=== PATIENT | female | born 1955 | race Caucasian/White ===

== ENCOUNTER 2016-10-24 16:52 | Inpatient (IN) | payer OTHER ==
[~2016-10-24] VITALS: Ht 167.6 cm; Wt 96.2 kg
[2016-10-24 16:55] VITALS: BP 236/99; PULSE 116; RESP 16; TEMP 98.9; O2SAT 98
[2016-10-24] MEDS ORDERED: VENL75TA PO (17:08)
[2016-10-24] MEDS ORDERED: SODIUM CHLOR 0.9% 1000 ML INJ 1,000 ML IV SCH (17:18)
[2016-10-24] MEDS ORDERED: SODIUM CHLORIDE 0.9% FLUSH 10 ML FLUSH IV FLUSH PRN ×2 (17:30→20:30)
[2016-10-24 17:35] LABS: AUTOMATED NEUTROPHIL # 10.6 TH/MM3 (1.8-7.7); BASOPHIL # 0.1 TH/MM3 (0-0.2); BASOPHIL % 0.4 % (0.0-2.0); EOSINOPHIL # 0.2 TH/MM3 (0-0.4); EOSINOPHIL % 1.5 % (0.0-4.0); HEMATOCRIT 42.3 % (35.0-46.0); HEMO FLAGS DIFF FINAL; LYMPH % 14.8 % (9.0-44.0); LYMPHOCYTE # 2.1 TH/MM3 (1.0-4.8); MEAN CELL VOLUME 83.3 FL (80.0-100.0); MEAN CORPUSCULAR HEMOGLOBIN 27.7 PG (27.0-34.0); MEAN CORPUSCULAR HGB CONC 33.2 % (32.0-36.0); MONO % 6.7 % (0.0-8.0); NEUT % 76.6 % (16.0-70.0); PLATELET COUNT 223 TH/MM3 (150-450); RED BLOOD COUNT 5.08 MIL/MM3 (4.00-5.30); RED CELL DISTRIBUTION WIDTH 12.6 % (11.6-17.2); WHITE BLOOD COUNT 13.9 TH/MM3 (4.0-11.0)
[2016-10-24 17:43] LABS: CHLORIDE 105 MEQ/L (98-107); POTASSIUM 3.2 MEQ/L (3.5-5.1); SODIUM (NA) 140 MEQ/L (136-145)
[2016-10-24 17:48] LABS: ANION GAP 8 MEQ/L (5-15); BICARBONATE 26.6 MEQ/L (21.0-32.0)
[2016-10-24 17:49] LABS: BLOOD UREA NITROGEN 11 MG/DL (7-18)
[2016-10-24 17:51] LABS: ALT (GPT) 30 U/L (10-53); AST (GOT) 23 U/L (15-37); GLOMERULAR FILTRATION RATE 84 ML/MIN (>89)
[2016-10-24 17:53] LABS: TOTAL BILIRUBIN ADULT 0.7 MG/DL (0.2-1.0)
[2016-10-24 17:54] LABS: ALKALINE PHOSPHATASE 79 U/L (45-117)
--- NOTE | 2016-10-24 17:55 | PD ---
HPI Chief Complaint: Flank/Kidney Pain Time Seen by Provider: 17:01 Travel History International Travel<30 days: No Contact w/Intl Traveler<30days: No Traveled to known affect area: No History of Present Illness HPI 51-year-old female complains of right upper quadrant pain radiating to the back since yesterday. Yesterday she felt pain in the region of the right back consistent with what she thought might have been a dislocated rib. She saw a chiropractor who is able to adjust her and reduce the rib. She felt better however overnight increasing right upper quadrant pain did not improve with Tylenol morning and by the afternoon today she decided to come to the ER. Here she notes 2 prior episodes of symptomatic cholelithiasis. She's had no fever or vomiting however has had decreased appetite. PFSH Past Medical History Medical History: Denies Significant Hx Tetanus Vaccination: > 5 Years Influenza Vaccination: No ?: Not Social History Alcohol Use: No Tobacco Use: No Substance Use: No Allergies-Medications (Allergen,Severity, Reaction): Uncoded Allergies: NARCOTICS (Adverse Reaction, Unknown, 10/24/16) Reported Meds & Prescriptions Reported Meds & Active Scripts Active Reported Effexor (Venlafaxine HCl) 75 Mg Tab 75 Mg PO DAILY Review of Systems Except as stated in HPI: all other systems reviewed are Neg General / Constitutional: No: Fever Gastrointestinal: Positive: Loss of Appetite Physical Exam Narrative GENERAL: 61-year-old female pleasant well-nourished well-developed SKIN: Focused skin assessment warm/dry. HEAD: Atraumatic. Normocephalic. EYES: Pupils equal and round. No scleral icterus. No injection or drainage. ENT: No nasal bleeding or discharge. Mucous membranes pink and moist. NECK: Trachea midline. No JVD. CARDIOVASCULAR: Regular rate and rhythm. No murmur appreciated. RESPIRATORY: No accessory muscle use. Clear to auscultation. Breath sounds equal bilaterally. GASTROINTESTINAL: Soft. Minimal tenderness palpation of the right upper quadrant. No flank tenderness. MUSCULOSKELETAL: No obvious deformities. No clubbing. No cyanosis. No edema. NEUROLOGICAL: Awake and alert. No obvious cranial nerve deficits. Motor grossly within normal limits. Normal speech. PSYCHIATRIC: Appropriate mood and affect; insight and judgment normal. Data Data Last Documented VS Vital Signs Date Time Temp Pulse Resp B/P Pulse Ox O2 Delivery O2 Flow Rate FiO2 7/31/17 16:55 98.9 116 16 236/99 98 VS REVIEWED Orders Complete Blood Count With Diff (10/24/16 17:18) Comprehensive Metabolic Panel (10/24/16 17:18) Lipase (10/24/16 17:18) Us Abdomen Gallbladder (10/24/16 ) Iv Access Insert/Monitor (10/24/16 17:18) Ecg Monitoring (10/24/16 17:18) Oximetry (10/24/16 17:18) Sodium Chlor 0.9% 1000 Ml Inj (Ns 1000 M (10/24/16 17:18) Sodium Chloride 0.9% Flush (Ns Flush) (10/24/16 17:30) Potassium Chloride (Kcl) (10/24/16 18:15) Piperacil-Tazo 3.375 Gm Premix (Zosyn 3. (10/24/16 19:30) Admit Order (Ed Use Only) (10/24/16 ) Labs Laboratory Tests Test 10/24/16 16:25 White Blood Count 13.9 TH/MM3 Red Blood Count 5.08 MIL/MM3 Hemoglobin 14.1 GM/DL Hematocrit 42.3 % Mean Corpuscular Volume 83.3 FL Mean Corpuscular Hemoglobin 27.7 PG Mean Corpuscular Hemoglobin 33.2 % Concent Red Cell Distribution Width 12.6 % Platelet Count 223 TH/MM3 Mean Platelet Volume 8.4 FL Neutrophils (%) (Auto) 76.6 % Lymphocytes (%) (Auto) 14.8 % Monocytes (%) (Auto) 6.7 % Eosinophils (%) (Auto) 1.5 % Basophils (%) (Auto) 0.4 % Neutrophils # (Auto) 10.6 TH/MM3 Lymphocytes # (Auto) 2.1 TH/MM3 Monocytes # (Auto) 0.9 TH/MM3 Eosinophils # (Auto) 0.2 TH/MM3 Basophils # (Auto) 0.1 TH/MM3 CBC Comment DIFF FINAL Differential Comment Sodium Level 140 MEQ/L Potassium Level 3.2 MEQ/L Chloride Level 105 MEQ/L Carbon Dioxide Level 26.6 MEQ/L Anion Gap 8 MEQ/L Blood Urea Nitrogen 11 MG/DL Creatinine 0.71 MG/DL Estimat Glomerular Filtration 84 ML/MIN Rate Random Glucose 114 MG/DL Calcium Level 9.1 MG/DL Total Bilirubin 0.7 MG/DL Aspartate Amino Transf 23 U/L (AST/SGOT) Alanine Aminotransferase 30 U/L (ALT/SGPT) Alkaline Phosphatase 79 U/L Total Protein 7.8 GM/DL Albumin 3.5 GM/DL Lipase 115 U/L MDM Medical Decision Making Medical Screen Exam Complete: Yes Emergency Medical Condition: Yes Medical Record Reviewed: Yes Differential Diagnosis Gastritis, pancreatitis, appendicitis, acute cholecystitis, ascending cholangitis, AAA, perforated viscous, mesenteric ischemia, hepatitis, cystitis, hydronephrosis/hydroureter/nephroureter calculus, mesenteric adenitis, biliary colic Narrative Course CBC & BMP Diagram 10/24/16 16:25 LFTS NORMAL LIPASE NORMAL Oncoming provider to follow-up ultrasound of the right upper quadrant and disposition depending on results. Scripts Lisinopril-Hctz 10-12.5 Mg Tab1 Tab PO DAILY #30 TAB Ref 0 Prov:Axel Dewitt MD 10/26/16 Umer Galeana MD Oct 24, 2016 17:55
[2016-10-24] MEDS ORDERED: POTASSIUM CHLORIDE 20 MEQ CONTROLLED RELEASE TAB PO ONE (18:15)
--- NOTE | 2016-10-24 19:06 | RADRPT ---
EXAM DATE/TIME: 10/24/2016 18:34 [place] COMPARISON: No previous studies available for comparison. INDICATIONS : Right upper quadrant and back pain, nausea and vomiting. MEDICAL HISTORY : Right upper quadrant and back pain, nausea and vomiting. SURGICAL HISTORY : Ankle surgery. ENCOUNTER: Initial ACUITY: 2 days PAIN SCORE: 4/10 LOCATION: Right upper quadrant MEASUREMENTS: LIVER: 18.5 cm length COMMON DUCT: 4 mm RIGHT KIDNEY: 11.4 x 5.8 x 6.7 cm FINDINGS: LIVER: Normal echotexture without focal lesion or ductal dilatation. Hepatopedal flow single portal vein. COMMON DUCT: No intraluminal mass or stone visualized. GALLBLADDER: Abnormal appearance the gallbladder with multiple small shadowing stones. Gallbladder wall measures 5 mm in thickness and on several images, there is a thin hypoechoic rim anteriorly suggesting pericho lecystic fluid. PANCREAS: Not well seen RIGHT KIDNEY: No evidence of hydronephrosis, stone, or mass. CONCLUSION: 1. Abnormal appearance the gallbladder with multiple shadowing stones, gallbladder wall thickening an d mild pericholecystic fluid. Findings suggest acute cholecystitis.2. Hepatomegaly without focal les ion. Paolo Murray MD on October 24, 2016 at 19:03 Board Certified Radiologist. This report was verified electronically.
[2016-10-24] MEDS ORDERED: PIPERACIL-TAZO 3.375 GM PREMIX 50 ML IV ONE (19:30)
--- NOTE | 2016-10-24 19:30 | PD ---
Physical Exam Narrative Patient signed out to me by Dr. Galeana. Please see his documentation for complete details. Briefly, patient is a 61 year old female who comes in complaining of right sided pain that started last night. Labs show an elevated WBC count to 13.9. LFTs and bilirubin are within normal limits. Data Data Last Documented VS Vital Signs Date Time Temp Pulse Resp B/P Pulse Ox O2 Delivery O2 Flow Rate FiO2 10/24/16 16:55 98.9 116 16 236/99 98 Orders Complete Blood Count With Diff (10/24/16 17:18) Comprehensive Metabolic Panel (10/24/16 17:18) Lipase (10/24/16 17:18) Us Abdomen Gallbladder (10/24/16 ) Iv Access Insert/Monitor (10/24/16 17:18) Ecg Monitoring (10/24/16 17:18) Oximetry (10/24/16 17:18) Sodium Chlor 0.9% 1000 Ml Inj (Ns 1000 M (10/24/16 17:18) Sodium Chloride 0.9% Flush (Ns Flush) (10/24/16 17:30) Potassium Chloride (Kcl) (10/24/16 18:15) Piperacil-Tazo 3.375 Gm Premix (Zosyn 3. (10/24/16 19:30) Labs Laboratory Tests Test 10/24/16 16:25 White Blood Count 13.9 TH/MM3 Red Blood Count 5.08 MIL/MM3 Hemoglobin 14.1 GM/DL Hematocrit 42.3 % Mean Corpuscular Volume 83.3 FL Mean Corpuscular Hemoglobin 27.7 PG Mean Corpuscular Hemoglobin 33.2 % Concent Red Cell Distribution Width 12.6 % Platelet Count 223 TH/MM3 Mean Platelet Volume 8.4 FL Neutrophils (%) (Auto) 76.6 % Lymphocytes (%) (Auto) 14.8 % Monocytes (%) (Auto) 6.7 % Eosinophils (%) (Auto) 1.5 % Basophils (%) (Auto) 0.4 % Neutrophils # (Auto) 10.6 TH/MM3 Lymphocytes # (Auto) 2.1 TH/MM3 Monocytes # (Auto) 0.9 TH/MM3 Eosinophils # (Auto) 0.2 TH/MM3 Basophils # (Auto) 0.1 TH/MM3 CBC Comment DIFF FINAL Differential Comment Sodium Level 140 MEQ/L Potassium Level 3.2 MEQ/L Chloride Level 105 MEQ/L Carbon Dioxide Level 26.6 MEQ/L Anion Gap 8 MEQ/L Blood Urea Nitrogen 11 MG/DL Creatinine 0.71 MG/DL Estimat Glomerular Filtration 84 ML/MIN Rate Random Glucose 114 MG/DL Calcium Level 9.1 MG/DL Total Bilirubin 0.7 MG/DL Aspartate Amino Transf 23 U/L (AST/SGOT) Alanine Aminotransferase 30 U/L (ALT/SGPT) Alkaline Phosphatase 79 U/L Total Protein 7.8 GM/DL Albumin 3.5 GM/DL Lipase 115 U/L MDM Supervised Visit with MONICA: No Narrative Course US shows acute cholecystitis. Surgery, Dr. Villa, was consulted who will come see the patient and likely take her to the OR tomorrow. She is given Zosyn. She does not want any more pain medicine at this time. She will be admitted to medicine for further management. Diagnosis Primary Impression: Cholecystitis Admitting Information Admitting Physician Requests: Admit Condition: Stable Poornima Savage MD Oct 24, 2016 19:30
[2016-10-24 20:19] VITALS: BP 181/102; PULSE 102; RESP 18; O2SAT 98
[2016-10-24 20:20] VITALS: RESP 18; O2SAT 98
[2016-10-24] MEDS ORDERED: ACETAMINOPHEN 325 MG TAB PO PRN (20:30)
[2016-10-24] MEDS ORDERED: diphenhydrAMINE HCL 25 MG CAP PO PRN (20:30)
[2016-10-24] MEDS ORDERED: KETOROLAC TROMETHAMINE 30 MG/ML (IVP) VIAL IVP PRN (20:30)
[2016-10-24] MEDS ORDERED: ONDANSETRON HCL 4 MG/2 ML VIAL IV PRN (20:30)
[2016-10-24 20:45] VITALS: BP 198/95; PULSE 98; RESP 20; TEMP 98.4; O2SAT 97
[2016-10-24] MEDS: LEVOFLOXACIN 500 MG PREMIX INJ 100 ML IV SCH (21:00)
[2016-10-24] MEDS: SODIUM CHLORIDE 0.9% FLUSH 10 ML FLUSH IV FLUSH SCH (21:00)
[2016-10-24] MEDS: D5-1/2 NS + KCL 20 MEQ INJ 1,000 ML IV SCH (21:31)
[2016-10-24] MEDS: metroNIDAZOLE 500 MG INJ 100 ML IV SCH (22:00)
[2016-10-25] VITALS: BP 156/85; PULSE 88; RESP 18; TEMP 98.8; O2SAT 98
[2016-10-25] MEDS: VENLAFAXINE HCL XR 75 MG CAP PO SCH ×2 (01:07→21:05)
[2016-10-25] MEDS: metroNIDAZOLE 500 MG INJ 100 ML IV SCH ×3 (05:56→21:07)
[2016-10-25 06:32] LABS: AUTOMATED NEUTROPHIL # 9.3 TH/MM3 (1.8-7.7); BASOPHIL % 0.4 % (0.0-2.0); EOSINOPHIL # 0.2 TH/MM3 (0-0.4); EOSINOPHIL % 1.6 % (0.0-4.0); HEMATOCRIT 38.3 % (35.0-46.0); HEMO FLAGS DIFF FINAL; LYMPH % 14.6 % (9.0-44.0); LYMPHOCYTE # 1.8 TH/MM3 (1.0-4.8); MEAN CELL VOLUME 84.6 FL (80.0-100.0); MEAN CORPUSCULAR HEMOGLOBIN 28.7 PG (27.0-34.0); MEAN CORPUSCULAR HGB CONC 33.9 % (32.0-36.0); MONO % 6.4 % (0.0-8.0); PLATELET COUNT 202 TH/MM3 (150-450); RED BLOOD COUNT 4.53 MIL/MM3 (4.00-5.30); RED CELL DISTRIBUTION WIDTH 12.5 % (11.6-17.2); WHITE BLOOD COUNT 12.1 TH/MM3 (4.0-11.0)
[2016-10-25 06:41] LABS: CHLORIDE 109 MEQ/L (98-107); POTASSIUM 3.5 MEQ/L (3.5-5.1); SODIUM (NA) 143 MEQ/L (136-145)
[2016-10-25 06:56] LABS: ANION GAP 8 MEQ/L (5-15); BICARBONATE 26.4 MEQ/L (21.0-32.0); BLOOD UREA NITROGEN 9 MG/DL (7-18)
[2016-10-25 06:59] LABS: ALT (GPT) 25 U/L (10-53); AST (GOT) 19 U/L (15-37); GLOMERULAR FILTRATION RATE 110 ML/MIN (>89)
[2016-10-25 07:00] LABS: TOTAL BILIRUBIN ADULT 0.5 MG/DL (0.2-1.0)
[2016-10-25 07:01] LABS: ALKALINE PHOSPHATASE 74 U/L (45-117)
[2016-10-25 08:00] VITALS: BP 180/96; PULSE 89; RESP 17; TEMP 97; O2SAT 97
[2016-10-25] MEDS: ENALAPRILAT 1.25 MG/ML VIAL IV PUSH PRN (09:07)
[2016-10-25] MEDS ORDERED: cloNIDine HCL 0.1 MG TAB PO PRN (09:30)
[2016-10-25] MEDS ORDERED: PROPOFOL 200 MG/20 ML AMP IV ONE (09:45)
[2016-10-25] MEDS ORDERED: ePHEDrine/NS 25 MG/5 ML SYR IV ONE (09:45)
[2016-10-25] MEDS ORDERED: PHENYLEPH/NS 1000 MCG/10 ML SYR IV ONE (09:45)
[2016-10-25] MEDS ORDERED: LACTATED RINGER'S 1000 ML INJ 1,000 ML IV ONE (09:45)
[2016-10-25] MEDS ORDERED: ONDANSETRON HCL 4 MG/2 ML VIAL IV PUSH ONE (09:45)
[2016-10-25] MEDS ORDERED: BUPIVACAINE/EPINEPHRINE 0.25% PF 30 ML VIAL ONE (10:07)
[2016-10-25] MEDS ORDERED: FAMOTIDINE 20 MG/2 ML VIAL ONE (10:08)
[2016-10-25] MEDS ORDERED: DEXAMETHASONE SOD PHOS 4 MG/ML VIAL ONE (10:08)
[2016-10-25] MEDS ORDERED: LIDOCAINE 1%/EPINEPHrine 1:100,000 SOLN 30 ML VIAL ONE (10:08)
[2016-10-25] MEDS ORDERED: APREPITANT 40 MG CAP ONE (10:08)
--- NOTE | 2016-10-25 10:12 | MH ---
cc: AXEL PELLETIER MD DATE OF ADMISSION: 10/24/2016 CHIEF COMPLAINT Chief complaint is right-sided flank pain HISTORY OF PRESENT ILLNESS This is a 51-year-old female with past medical-surgical history significant for depression, history of gallstones in the past. Patient came to the emergency room at [facility] complaining of right upper quadrant abdominal pain as well as right flank pain which going to the front area, this started the day before yesterday. The pain was felt in the region of the right back which is thought which might be dislocated rib. She was thinking about that. She saw chiropractor who was able to adjust her and reduces the rib, so she felt better. However, overnight increasing right upper quadrant pain did not improve with Tylenol and she decided to come to the [facility] emergency room she had two prior episode of symptomatic cholelithiasis. She has no fever or chills. She denies any nausea or vomiting, any diarrhea, constipation. She denies any nausea, vomiting. But she has diarrhea this morning watery. No blood in the stool. Denies any fever or chills. Other than that nothing significant PAST MEDICAL HISTORY: Past medical history as dictated above. PAST SURGICAL HISTORY Nothing significant. SOCIAL HISTORY Denies smoking, drinking take any drugs. Lives at home alone. 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 FAMILY HISTORY: Family history significant for diabetes mellitus Coronary artery disease Hypertension. ALLERGIES Allergy to narcotics MEDICATIONS Include Effexor 75 mg p.o. daily. REVIEW OF SYSTEMS This system positive for mild right upper quadrant and right loin area pain radiating to the groin, and also diarrhea all other review of systems are negative. PHYSICAL EXAMINATION IN GENERAL: This is a 61-year-old female sitting on the bed not in acute distress. VITAL SIGNS: Temperature is 97.0, heart rate 89, respirations 17, blood pressure 180/96, O2 saturation 97% room air. HEAD, EYES, EARS, NOSE, AND THROAT: Normocephalic, atraumatic. Extraocular muscles intact. Oral mucosa moist. NECK: Neck is supple. No visible thyromegaly or neck mass. Trachea central. CARDIOVASCULAR SYSTEM: Regular rate and rhythm. LUNGS: Respirations clear to auscultation clear to auscultation bilaterally. ABDOMEN: Soft, nontender. Bowel sounds audible. EXTREMITIES: No cyanosis or clubbing. Full range of motion of all extremities. NEUROLOGIC: Awake, alert, oriented x4. No focal deficit. SKIN: Warm and dry. PSYCHIATRIC: The patient is cooperative mood and affect is normal. LABORATORY DATA Include CBC is totally unremarkable except for WBC count of 0.1 high, neutrophils 77.0% a high. BMP totally unremarkable except for potassium of 3.2 now it is 3.5, a chloride 109 high, glucose 130 high, calcium 8.4 low. Liver function tests are normal except albumin 2.3, 0.2. G RADIOLOGIC: Gallbladder ultrasound was done shows abnormal appearance of the gallbladder with multiple shadowing, stone gallbladder wall thickening and mild cholecystic fluid. Findings suggest acute cholecystitis without focal lesion. ASSESSMENT/PLAN 1. This is an 61-year female who came to the emergency room diagnosed with abdominal pain and mild pain most likely secondary to acute cholecystitis. 2. Ultrasound of the gallbladder shows acute cholecystitis. The patient is on Flagyl and Levaquin IV. 3. General surgery consulted. Further recommendation per general surgeon. 4. History of depression. Continue with Effexor 75 mg p.o. 5. Hypertension. The patient is on enalapril and clonidine p.r.n. for high blood pressure. 6. Right upper quadrant / right loin area pain, the patient is on Toradol injection and Tylenol. 7. Deep venous thrombosis prophylaxis. The patient is walking. 8. GI prophylaxis Protonix 40 mg p.o. daily. 9. We are going to manage the patient on a daily basis and make recommendation on daily basis. 10. Hypokalemia which has resolved. Axel Pelletier MD EA/ruby /9:22 AM /9:32 AM
[2016-10-25] MEDS ORDERED: MIDAZOLAM HCL 2 MG/2 ML VIAL ONE (10:22)
[2016-10-25] MEDS ORDERED: ACETAMINOPHEN 1000 MG/100 ML VIAL IV ONE (10:22)
--- NOTE | 2016-10-25 11:06 | HHI.PR ---
Immediate Post Op Note Procedure Date: Oct 25, 2016 Pre Op Diagnosis: acute cholecystitis with cholelithiasis, Post Op Diagnosis: same, small superficial liver lesion Surgeon: Miky Villa MD [employer] D[employer](s): see or sheet Procedure: lap [place], with liver bx Findings: distended gallbladder with stones, small white liver lesions Complications: none Specimen(s) removed: gallbladder, liver mass Estimated blood loss: 5cc Anesthesia: General Drains: None Patient to: PACU Patient Condition: Good Miky Villa MD Oct 25, 2016 11:06
[2016-10-25] MEDS ORDERED: traMADol HCL 50 MG TAB PO PRN (11:15)
--- NOTE | 2016-10-25 11:24 | MB ---
cc: KAROLYN BASS MD DATE OF CONSULTATION 10/23/2016 REASON FOR CONSULTATION Right upper quadrant abdominal pain, acute cholecystitis. HISTORY OF PRESENT ILLNESS The patient is a 51-year-old female who presents with acute onset of right upper quadrant abdominal pain. She stated the pain started a day ago and continue to get worse. She had associated it with some rib pain which she describes as having an adjustment by her chiropractor with some improvement, however, pain persisted. She came to the emergency department for further evaluation including gallbladder ultrasound showing a thickened gallbladder wall, pericholecystic fluid and gallstones. She also states having a fever. Surgery was consulted for further evaluation. On my exam, the patient is stated pain is still present. The pain is approximately 5/10 and persistent. She states the pain is sharp with some radiation to the back, better with lying still, worse with movement. She has had several other gallbladder attacks in the past, approximately last November was the last one and she only had medical treatment for this. She denies any weight loss and has had some nausea, but no vomiting. PERSONAL HISTORY Hypertension PAST SURGICAL HISTORY Right ankle surgery ALLERGIES The patient has no known drug allergies. However, reacts poorly to NARCOTIC MEDICATIONS, see EMR. SOCIAL HISTORY Denies smoking, ETOH or IVDA. FAMILY HISTORY Positive in mother for diabetes. Father for coronary artery disease. REVIEW OF SYSTEMS GENERAL: Complained of fevers. HEENT: Denies eye pain or ear pain. NECK: Denies swelling or pain. LUNGS: Denies cough or wheeze. CARDIAC: Denies palpitation or chest pain. ABDOMEN: Complains of nausea, abdominal pain. Denies vomiting. : Denies dysuria or hematuria. ENDOCRINE: Denies polyuria or polydipsia. EXTREMITIES: Denies arthralgia or myalgias. PSYCH: Good insight, good judgment. History of depression. PHYSICAL EXAMINATION GENERAL: The patient is in no acute distress. VITAL SIGNS: Temperature 98.9, pulse 102, respirations 18, blood pressure 181/102 saturation 98%. HEENT: PERRLA, pupils equal round reactive. No scleral icterus. NECK: Supple. Trachea midline. LUNGS: Bilateral expansion, clear. HEART: S1-S2 regular. ABDOMEN: Soft, positive tenderness to palpation right upper quadrant. No rebound. No scars. EXTREMITIES: Warm, well-perfused. BACK: Normal curve. No step-offs. INTEGUMENT: No obvious masses or lesions. PSYCH: Good insight. Good judgment. LABORATORY AND DIAGNOSTIC DATA WBC 13.9, hemoglobin 14.1, hematocrit 42.3, platelets 223. Sodium 140, potassium 3.2, BUN 11, creatinine 0.7, glucose 114, T- bili 0.7, AST 23, ALT 30, alkaline phosphatase 79, lipase 115. Gallbladder ultrasound reviewed by myself showing a thickened gallbladder wall, pericholecystic fluid, multiple gallstones. ASSESSMENT The patient is a 61-year-old female with right upper quadrant abdominal pain, acute cholecystitis with cholelithiasis. PLAN After a full clinical and laboratory work up, patient with the above-named issues including right upper quadrant pain and cholecystitis and cholelithiasis. At this point, recommend IV antibiotics, pain control, IV fluids. The patient will be okay to have liquids overnight and will make n.p.o. at midnight and plan for surgical intervention tomorrow. Discussed with the patient in detail who states understanding, agrees and would like to proceed with a laparoscopic cholecystectomy, possible open. MD LYNN Montero/ELLYN /10:58 AM /11:14 AM
[2016-10-25] MEDS ORDERED: ceFAZolin INJ 1,000 MG VIAL ONE (11:46)
--- NOTE | 2016-10-25 12:20 | EKG ---
Date Performed: 10/25/2016 Time Performed: 10:48:05 PTAGE: 61 years EKG: Sinus rhythm INFERIOR MYOCARDIAL INFARCTION ABNORMAL ECG NO PREVIOUS TRACING DOCTOR: Osmin Maddox Interpretating Date/Time 10/25/2016 12:17:55
[2016-10-25] MEDS: ACETAMINOPHEN 1000 MG/100 ML VIAL IV SCH ×2 (14:23→18:00)
[2016-10-25 16:00] VITALS: BP 158/91; PULSE 92; RESP 18; TEMP 97.2; O2SAT 98
[2016-10-25] MEDS: PIPERACIL-TAZO 3.375 GM PREMIX 50 ML IV SCH ×2 (16:00→21:07)
[2016-10-25 20:00] VITALS: BP 139/79; PULSE 90; RESP 20; TEMP 97.7; O2SAT 96
--- NOTE | 2016-10-25 20:50 | MP ---
cc: KAROLYN BASS MD DATE OF SURGERY 10/25/16 PREOPERATIVE DIAGNOSIS Acute cholecystitis with cholelithiasis. POSTOPERATIVE DIAGNOSIS Acute cholecystitis with cholelithiasis, small liver lesions. PROCEDURE PERFORMED 1. Laparoscopic cholecystectomy. 2. Laparoscopic liver biopsy. ANESTHESIA GETA. IV FLUIDS 500 cc. ESTIMATED BLOOD LOSS 5 cc. DRAINS None. COMPLICATIONS None. WOUND CLASSIFICATION Clean, contaminated. SPECIMENS 1. Gallbladder. 2. Liver lesion. INDICATION The patient is a 61-year-old female who presented with acute onset of right upper quadrant pain. She states the pain was present a few days ago. She thought it was rib pain in nature and went to the chiropractor for an adjustment without significant relief. Therefore, decision was made for further workup including to be evaluated by the emergency department. She underwent ultrasound of the gallbladder showing a thickened gallbladder wall, pericholecystic fluid and some gallstones. Surgery was then consulted and discussion, decision for laparoscopic cholecystectomy. The patient agreed and would like to proceed. PROCEDURE IN DETAIL The patient was taken to the operative suite, placed in the supine position. She was prepped and draped in the usual sterile fashion after induction of general endotracheal anesthesia. Brief time-out done stating correct patient, procedure and surgical site, were all in agreement with this. The patient got a cap block prior to commencement of the operation for local regional nerve block. The patient has narcotic intolerance. Attention directed to the umbilicus where stab fercho incision was made with an 11 blade. Veress needle placed, abdomen insufflated to ___ mm pneumoperitoneum after confirmation of abdominal placement by saline drop test. The Veress needle was changed for a 5-mm Visiport trocar with a 5 mm scope entered in the abdomen. On cursory inspection no evidence of injury. Three other ports were placed, one 12 mm epigastric port, followed by two 5 mm right upper quadrant subcostal ports, mid axillary line and midclavicular line. The patient then placed in reverse Trendelenburg airplaned to the left. Gallbladder was identified noted to have omentum that was caked and significant adhesions on it. The gallbladder noted to be very inflamed with some minimal evidence of necrosis to the wall superficially. Gallbladder was also severely distended. An Endo needle was used to aspirate 100 cc of bile from gallbladder. Gallbladder was grasped after adhesions were taken down through the superficial fundus of the gallbladder and retracted cephalad. Suction irrigation and electro Bovie cautery [place] was used to dissect out the cystic duct and cystic artery. This was done somewhat tediously and given such inflammation of fatty tissue that was scarred in and around gallbladder. Cystic artery was identified and three clips were placed proximal and distal. The cystic artery was transected. Cystic duct was somewhat shortened but dissected out completely and three clips were placed proximally on this one 10 mm clip was placed. A clip was placed distally and Endoshears were used to transect the cystic duct as well. Gallbladder was removed from the gallbladder fossa using hook electro Bovie cautery. Hemostasis was obtained to the gallbladder fossa. Suction irrigation used to the right upper quadrant. Upon observation there was noted to be circular lesions that were abutting the anterior lobe of the right just adjacent to the gallbladder. Endoshears were used to dissect around and transect the small lesion. This lesion was sent for pathology. The area was bovied with electric cautery hook Hemostasis was achieved. Again, the gallbladder was removed in an EndoCatch bag from the epigastric port. The abdomen was desufflated. The trocar epigastric was closed with [id number] 0 Vicryl. 4-0 Monocryl was placed at all trocar sites. Subcuticular suture, Steri-Strips placed, sterile dressings placed. The patient tolerated the procedure well. There was no intraoperative complication. The patient was extubated and taken stable to PACU. All lap and instrument counts were correct at the end of the procedure. MD LYNN Montero/DEZ /1:03 PM /8:28 PM
[2016-10-25] MEDS: LEVOFLOXACIN 500 MG PREMIX INJ 100 ML IV SCH (21:00)
[2016-10-25] MEDS: D5-1/2 NS + KCL 20 MEQ INJ 1,000 ML IV SCH (21:06)
[2016-10-25] MEDS: SODIUM CHLORIDE 0.9% FLUSH 10 ML FLUSH IV FLUSH SCH (21:07)
[2016-10-26] VITALS: BP 161/91; PULSE 90; RESP 20; TEMP 96.7; O2SAT 98
[2016-10-26] MEDS: D5-1/2 NS + KCL 20 MEQ INJ 1,000 ML IV SCH (01:52)
[2016-10-26 04:00] VITALS: BP 185/91; PULSE 99; RESP 20; TEMP 97; O2SAT 97
[2016-10-26] MEDS: PIPERACIL-TAZO 3.375 GM PREMIX 50 ML IV SCH (05:22)
[2016-10-26] MEDS: metroNIDAZOLE 500 MG INJ 100 ML IV SCH (05:23)
[2016-10-26] MEDS: ACETAMINOPHEN 1000 MG/100 ML VIAL IV SCH ×3 (05:23→11:00)
[2016-10-26] MEDS: ENALAPRILAT 1.25 MG/ML VIAL IV PUSH PRN (05:33)
[2016-10-26 06:20] LABS: CHLORIDE 108 MEQ/L (98-107); POTASSIUM 3.9 MEQ/L (3.5-5.1); SODIUM (NA) 143 MEQ/L (136-145)
[2016-10-26 06:21] LABS: AUTOMATED NEUTROPHIL # 9.2 TH/MM3 (1.8-7.7); BASOPHIL % 0.2 % (0.0-2.0); EOSINOPHIL % 0.3 % (0.0-4.0); HEMATOCRIT 34.3 % (35.0-46.0); HEMO FLAGS DIFF FINAL; LYMPH % 18.3 % (9.0-44.0); LYMPHOCYTE # 2.2 TH/MM3 (1.0-4.8); MEAN CELL VOLUME 84.5 FL (80.0-100.0); MEAN CORPUSCULAR HGB CONC 33.1 % (32.0-36.0); MONO % 6.9 % (0.0-8.0); NEUT % 74.3 % (16.0-70.0); PLATELET COUNT 195 TH/MM3 (150-450); RED BLOOD COUNT 4.07 MIL/MM3 (4.00-5.30); RED CELL DISTRIBUTION WIDTH 12.6 % (11.6-17.2); WHITE BLOOD COUNT 12.2 TH/MM3 (4.0-11.0)
[2016-10-26 06:24] LABS: ANION GAP 7 MEQ/L (5-15); BICARBONATE 28.3 MEQ/L (21.0-32.0); BLOOD UREA NITROGEN 9 MG/DL (7-18)
[2016-10-26 06:27] LABS: ALT (GPT) 33 U/L (10-53); AST (GOT) 25 U/L (15-37); GLOMERULAR FILTRATION RATE 94 ML/MIN (>89)
[2016-10-26 06:29] LABS: TOTAL BILIRUBIN ADULT 0.3 MG/DL (0.2-1.0)
[2016-10-26 06:30] LABS: ALKALINE PHOSPHATASE 62 U/L (45-117)
[2016-10-26] MEDS: SODIUM CHLORIDE 0.9% FLUSH 10 ML FLUSH IV FLUSH SCH (07:45)
[2016-10-26 08:00] VITALS: BP 160/92; PULSE 83; RESP 20; TEMP 99.3; O2SAT 94
--- NOTE | 2016-10-26 08:39 | HHI.PR ---
Subjective History of Present Illness Patient s/p cholecystectomy wants to go home ok to discharge per surgery. Review of Systems GI/Abdomen GI/Abdominal Exam: Abdominal Pain Vitals/Results Intake & Output 10/25/16 10/25/16 10/26/16 15:00 23:00 07:00 Intake Total 1200 ml 1444 ml 752 ml Balance 1200 ml 1444 ml 752 ml Intake Oral 960 ml 60 ml IV Total 200 ml 484 ml 692 ml Other 1000 ml # Voids 2 3 1 # Bowel Movements 0 0 Vital Signs Vital Signs Date Time Temp Pulse Resp B/P Pulse Ox O2 Delivery O2 Flow Rate FiO2 10/26/16 08:00 99.3 83 20 160/92 94 10/26/16 04:00 97.0 99 20 185/91 97 10/26/16 00:00 96.7 90 20 161/91 98 10/25/16 20:00 97.7 90 20 139/79 96 10/25/16 16:00 97.2 92 18 158/91 98 10/25/16 15:00 20 10/25/16 13:30 98.2 63 16 158/76 94 Room Air 10/25/16 13:15 98.1 66 16 161/80 95 Nasal Cannula 3 10/25/16 13:00 64 14 159/82 96 Nasal Cannula 2 10/25/16 12:55 68 16 163/77 96 Nasal Cannula 2 10/25/16 12:50 66 14 167/77 99 Nasal Cannula 2 10/25/16 12:45 98.1 73 14 158/77 99 Nasal Cannula 2 CBC/BMP: 10/26/16 0520 10/26/16 0520 Lab Results Laboratory Tests Test 10/26/16 05:20 White Blood Count 12.2 TH/MM3 Red Blood Count 4.07 MIL/MM3 Hemoglobin 11.4 GM/DL Hematocrit 34.3 % Mean Corpuscular Volume 84.5 FL Mean Corpuscular Hemoglobin 28.0 PG Mean Corpuscular Hemoglobin 33.1 % Concent Red Cell Distribution Width 12.6 % Platelet Count 195 TH/MM3 Mean Platelet Volume 8.7 FL Neutrophils (%) (Auto) 74.3 % Lymphocytes (%) (Auto) 18.3 % Monocytes (%) (Auto) 6.9 % Eosinophils (%) (Auto) 0.3 % Basophils (%) (Auto) 0.2 % Neutrophils # (Auto) 9.2 TH/MM3 Lymphocytes # (Auto) 2.2 TH/MM3 Monocytes # (Auto) 0.8 TH/MM3 Eosinophils # (Auto) 0.0 TH/MM3 Basophils # (Auto) 0.0 TH/MM3 CBC Comment DIFF FINAL Differential Comment Sodium Level 143 MEQ/L Potassium Level 3.9 MEQ/L Chloride Level 108 MEQ/L Carbon Dioxide Level 28.3 MEQ/L Anion Gap 7 MEQ/L Blood Urea Nitrogen 9 MG/DL Creatinine 0.64 MG/DL Estimat Glomerular Filtration 94 ML/MIN Rate Random Glucose 113 MG/DL Calcium Level 8.4 MG/DL Total Bilirubin 0.3 MG/DL Aspartate Amino Transf 25 U/L (AST/SGOT) Alanine Aminotransferase 33 U/L (ALT/SGPT) Alkaline Phosphatase 62 U/L Total Protein 6.5 GM/DL Albumin 2.9 GM/DL Physical Exam General General Appearance: Well Developed, Well Nourished, No Acute Distress, Comfortable Eyes Eye Exam: Sclera White, Extraocular Movement Intact Throat Throat Exam: Oral Mucosa [place] & Moist, Oral Pharynx Normal Neck Neck Exam: Neck Supple, Trachea Midline Pulmonary Resp Exam: Clear Bilaterally, Breath Sounds Equal, No Distress Cardiology CV Exam: Regular, Normal Sinus Rhythm Gastrointestinal/Abdomen GI Exam: Soft GI Remarks Tender at surgical area. Musculoskeletal MS Exam: Normal Tone Integumentary Skin Exam: Warm, Dry Extremeties Extremities Exam: No Edema Neurologic Neuro Exam: Alert, Awake, Oriented, Speech Clear, Moving All Extremities, No Focal Deficits VTE Prophylaxis VTE Prophylaxis Meds: Heparin PUD Prophylasis PUD Prophylaxis: Protonix Assessment/Plan Assessment/Plan ASSESSMENT/PLAN 1. This is an 61-year female who came to the emergency room diagnosed with abdominal pain and mild pain most likely secondary to acute cholecystitis. Ultrasound of the gallbladder shows acute cholecystitis. The patient is on Flagyl and Levaquin IV. General surgery input noted. s/p cholecystectomy Further recommendation per general surgeon. 2. History of depression. Continue with Effexor 75 mg p.o. 3. Hypertension. The patient is on enalapril and clonidine p.r.n. for high blood pressure. 4. Right upper quadrant / right loin area pain, the patient is on Toradol injection and Tylenol. 5. Deep venous thrombosis prophylaxis. The patient is walking. 6. GI prophylaxis Protonix 40 mg p.o. daily. 7. Hypokalemia which has resolved. Patient wants to go home ok to discharge per surgery. ok to dc home today. F/U with PCP / GI/ General surgery 1 week. condition at discharge good. Activity as tolerated. Diet Cardiac. Medicine see discharge medicine list. Discussed Condition with: Patient Axel Dewitt MD Oct 26, 2016 08:39
[2016-10-26] MEDS ORDERED: LISI10TA PO ×3 (11:08→12:22)
[2016-10-26 12:00] VITALS: BP 135/82; PULSE 69; RESP 20; TEMP 97.8; O2SAT 98
--- NOTE | 2016-10-26 17:14 | HHI.PR ---
Subjective Subjective Notes Doing well post op; pain controlled Objective Vitals/I&O Vital Signs Date Time Temp Pulse Resp B/P Pulse Ox O2 Delivery O2 Flow Rate FiO2 10/26/16 12:00 97.8 69 20 135/82 98 10/25/16 13:30 Room Air 10/25/16 13:15 3 Labs Laboratory Tests Test 10/26/16 05:20 White Blood Count 12.2 Red Blood Count 4.07 Hemoglobin 11.4 Hematocrit 34.3 Mean Corpuscular Volume 84.5 Mean Corpuscular Hemoglobin 28.0 Mean Corpuscular Hemoglobin 33.1 Concent Red Cell Distribution Width 12.6 Platelet Count 195 Mean Platelet Volume 8.7 Neutrophils (%) (Auto) 74.3 Lymphocytes (%) (Auto) 18.3 Monocytes (%) (Auto) 6.9 Eosinophils (%) (Auto) 0.3 Basophils (%) (Auto) 0.2 Neutrophils # (Auto) 9.2 Lymphocytes # (Auto) 2.2 Monocytes # (Auto) 0.8 Eosinophils # (Auto) 0.0 Basophils # (Auto) 0.0 CBC Comment DIFF FINAL Differential Comment Sodium Level 143 Potassium Level 3.9 Chloride Level 108 Carbon Dioxide Level 28.3 Anion Gap 7 Blood Urea Nitrogen 9 Creatinine 0.64 Estimat Glomerular Filtration 94 Rate Random Glucose 113 Calcium Level 8.4 Total Bilirubin 0.3 Aspartate Amino Transf 25 (AST/SGOT) Alanine Aminotransferase 33 (ALT/SGPT) Alkaline Phosphatase 62 Total Protein 6.5 Albumin 2.9 Cardiovascular: Regular Lungs: Clear Abdomen: Other (lap sites c/d/i; minimal bloody drainage on umbilicus site; non distended; minimal tenderness with palpation ) Extremities: No edema A/P Assessment and Plan 61 year old female POD1 lap [place]; uncomplicated -Advance to heart healthy diet -Avoid narcotic pain medications if able to -OOB and mobilize -If tolerates diet will plan to DC today -Follow up with Dr. Villa in the office next week -Work note completed Sandy Ortega Oct 26, 2016 17:14
== END 2016-10-26 12:44 | disposition home or self-care (01) | DRG 419 ==
LOC: PHED 16:52 → PHEDA 19:59 → INTOOBSV 19:59 → PH3B 20:45 → OBSVTOIN 10-26 08:40
PROVIDERS: ADMIT Family Medicine; ATTEND Family Medicine
PROC: 0FT44ZZ Resection of Gallbladder, Percutaneous Endoscopic Approach (ICD-10-PCS; principal; 2016-10-26)
PROC: 0FB14ZX Excision of Right Lobe Liver, Percutaneous Endoscopic Approach, Diagnostic (ICD-10-PCS; 2016-10-26)
DX: K80.00 Calculus of gallbladder with acute cholecystitis without obstruction (principal); I10 Essential (primary) hypertension; F32.9 Major depressive disorder, single episode, unspecified; K76.9 Liver disease, unspecified; E87.6 Hypokalemia
CPT/HCPCS: 76705; 80053; 83690; 85025; 88304; 88307; 88312; 88313; 93005; 96361; 96365; 96367; 96368; 96375; 96376; G0378; J0131; J0690; J1100; J2250; J2370; J2405; J2543; J3480; J7030; J7120; J8501